=== PATIENT | female | born 1930 | race African-American/Black ===

== ENCOUNTER 2016-11-19 20:41 | Inpatient (IN) | payer MEDICARE ==
[2016-11-17 13:39] LABS: ALBUMIN 3.7 G/DL (3.5-5.0); ALKALINE PHOSPHATASE 116 U/L (45-117); CHOL/HDL RATIO(NOT ORDER) 3.4 (0-5); CHOLESTEROL 175 MG/DL (< 200); HDL CHOLESTEROL 51 MG/DL (> 49); LDL CHOLESTEROL 93 MG/DL (< 130); NON-HDL CHOLESTEROL 124 MG/DL (< 160); SGOT(AST) 17 U/L (5-40); SGPT(ALT) 16 U/L (5-65); TOTAL BILIRUBIN 0.3 MG/DL (0-1.2); TOTAL PROTEIN 7.2 G/DL (6.0-8.5); TRIGLYCERIDE 159 MG/DL (< 150)
[2016-11-17 13:56] LABS: DIRECT BILIRUBIN < 0.1 MG/DL (0.0-0.4); INDIRECT BILIRUBIN(NOT ORDER) 0.2 MG/DL (0.1-0.9)
--- NOTE | ~2016-11-19 | CN ---
Consultation Report [facility] [address] [place]. [address] NAME: JM SULTANA : 28 STATUS : ADM IN [facility]#: [id number] AGE: 85 ADM/REG DATE : 11/19/16 MR#: [id number] REPORT SERV DATE: 11/20/16 DICTATED BY: DELLA ARREDONDO DATE: 11/20/16 REPORT STATUS : Draft TRANSCRIBED BY: INEZ DATE: 11/20/16 GI CONSULTATION DATE OF CONSULTATION: 11/20/2016 REASON FOR CONSULTATION: Evaluation and management of acute lower GI bleeding. HISTORY OF PRESENT ILLNESS: Ms. Jm Sultana is a very pleasant 85-year-old female patient, who was admitted to [facility] on 11/19/2016 for a chief complaint of lower GI bleeding. Ms. Sultana gives a history of symptom onset yesterday at 7 p.m. She states that she felt like she had to use the restroom in terms of having diarrhea. She went to the bathroom. She states that she had a lot of what she felt like was loose stool; however, after observing her output, she noticed that everything was bright red as well as some intermixed scant loose stool. This happened multiple times. She called EMS, who brought her in. She continued to have multiple bloody bowel movements in the emergency room, as well as suffering a syncopal episode during a bowel movement. Her hemoglobin on admission was 12.4, it did drop to 8.4, she is status post one unit of packed red blood cells with improvement to 11.1. She was started on GoLYTELY this morning around 6 a.m., she has only drunk roughly one-fourth of it, it is now 10:25. I have discussed with the patient. She is experiencing some nausea and difficulty getting the bowel prep down. She has passed some more blood with a little bit of dark output per the nurse. Her hemoglobin is stable. Her vital signs are stable. I have discussed with the patient and the family we will hold the bowel prep at present, place her on a clear liquid diet, resume bowel prep this afternoon around 1600 hours. If she continues to have large volume bleeding with decreased hemoglobin and symptomatic changes, we will send her for a tagged red blood cell scan with therapy with interventional Radiology if she has a positive scan. If not, we will proceed with colonoscopy on 11/21/2016. I did discuss with the patient and two family members present at the bedside risks, benefits, alternatives, and complications of colonoscopy to include, but not limited to risk of bleeding, perforation, infection, reaction to medication as well as cardiac and pulmonary side effects. She is agreeable to proceed. PAST MEDICAL HISTORY: Positive for hypertension, hyperlipidemia, type 2 diabetes, osteoarthritis. PAST SURGICAL HISTORY: Hysterectomy, cholecystectomy, left eye surgery. FAMILY HISTORY: Noncontributory. SOCIAL HISTORY: She lives with family. Denies alcohol, tobacco, or illicits. PROCEDURES: She denies ever having EGD or colonoscopy. ALLERGIES: IV DYE, SULFA, IODINE, CODEINE, PROPYLTHIOURACIL. Consultation Report [address] [place]. [address] NAME: JM SULTANA : 29 STATUS : ADM IN [facility]#: [id number] AGE: 85 ADM/REG DATE : 11/19/16 MR#: [id number] REPORT SERV DATE: 11/20/16 DICTATED BY: DELLA ARREDONDO DATE: 11/20/16 REPORT STATUS : Draft TRANSCRIBED BY: INEZ DATE: 11/20/16 HOME MEDICATIONS: Consist of Tylenol, Lantus, Adalat, Pravachol, and Altace. REVIEW OF SYSTEMS: A 10-point review of systems obtained with pertinent positives addressed in the history of present illness. PERTINENT LABORATORY DATA: Sodium is 145, potassium is 4.6, BUN is 15, creatinine is 1.03. White count 12.8, hemoglobin 11.1, hematocrit 33.5, platelet count of 200. INR 1.1. No abdominal imaging has been ordered. PHYSICAL EXAMINATION: VITAL SIGNS: Temperature 98.1, pulse 98, respirations 22, blood pressure is 150/70. NEURO: Reveals an alert, pleasant 85-year-old female patient, resting in the bed with no obvious focal deficits. GENERAL: Cooperative, in no apparent distress. Awake, alert, and oriented x3. HEAD, EARS, EYES, NOSE, AND THROAT: Anicteric. Pupils are equal, round, reactive to light and accommodation. Normocephalic and atraumatic. NECK: No JVD. No palpable nodes. LUNGS: Clear anteriorly with normal respiratory effort exhibited. Equal expansion. CARDIOVASCULAR SYSTEM: Regular rate and rhythm. ABDOMEN: Soft, hyperactive, nontender, mildly distended. No organomegaly, rebound, or guarding elicited on exam. EXTREMITIES: No edema. Normal distal pulses. SKIN: Warm, dry, and intact. ASSESSMENT: 1. Acute lower GI bleed, painless in nature. Differential diagnosis includes:. a. Diverticular, which is favored. b. Internal hemorrhoids. c. AVM. d. Colitis versus a brisk upper GI bleed. 2. Acute blood loss anemia, status post one unit of packed red blood cells. 3. Status post syncopal episode. 4. History of diabetes type 2. 5. History of hypertension. PLAN: 1. Bowel prep to finish this afternoon, colonoscopy planned for 11/21/2016. 2. Monitor H and H, transfuse if needed. 3. If large volume GI bleeding occurs, she becomes symptomatic or decreased hemoglobin, we will send for a stat tagged red blood cell scan with treatment in IR if active bleeding is found. Otherwise, proceed with colonoscopy on 11/21. Other recommendations to follow endoscopy. Consultation Report [facility] [id number] [place]. [address] NAME: JM SULTANA : 29 STATUS : ADM IN PAT#: [id number] AGE: 85 ADM/REG DATE : 11/19/16 MR#: [id number] REPORT SERV DATE: 11/20/16 DICTATED BY: DELLA ARREDONDO DATE: 11/20/16 REPORT STATUS : Draft TRANSCRIBED BY: INEZ DATE: 11/20/16 KEITH/INEZ SOTO Cueva / [id number] CC: MD Eric Fairbanks M.D.
--- NOTE | ~2016-11-19 | HP ---
History And Physical [facility] [id number] [facility] [place]. [address] NAME: DESIRE SULTANA : 29 STATUS : ADM IN [facility]#: [id number] AGE: 85 ADM/REG DATE : 11/19/16 MR#: [id number] REPORT SERV DATE: 11/20/16 DICTATED BY: CANDIE AVINA DATE: 11/20/16 REPORT STATUS : Draft TRANSCRIBED BY: INEZ DATE: 11/20/16 DATE OF ADMISSION: 11/19/2016 CHIEF COMPLAINT: Bleeding. HISTORY OF PRESENT ILLNESS: The patient is an 85-year-old pleasant female with a past medical history of type 2 diabetes, hypertension, and hyperlipidemia, who presents to the emergency room tonight with rectal bleeding. The patient states she was in her usual state of health until approximately 7 p.m. on the night before the hospital admission. She says at that time she went to have, what she thought was, a bowel movement and when she looked in the toilet saw that it was filled with bright red blood and very scant loose stools. She then proceeded to call EMS who brought her here to the emergency room. Here in the emergency room, she has had multiple bloody bowel movements that have filled up pads and basins in the emergency room. She had a syncopal episode during one of these bowel movements and her hemoglobin has gone from 12 down to 8 in the emergency room. Her last bloody bowel movement was at approximately 11 p.m. last night in the ER. The patient says that prior to these bleeding episodes she has been feeling fine in the last few days. No weakness. No chest pain. No shortness of breath. No fevers. No abdominal pain. She denies any history of bleeding and denies taking any blood thinners. She has not been routinely taking any NSAIDs or other pain medications. Given the patient's syncopal episode and her multiple bright red blood per rectum bowel movements, the patient is being admitted to the ICU for further management. PAST MEDICAL HISTORY: 1. Hypertension. 2. Type 2 diabetes. 3. Hyperlipidemia. 4. Osteoarthritis. 5. History of hysterectomy. 6. History of cholecystectomy. 7. History of left eye cataract. HOME MEDICATIONS: 1. Lantus 30 units subcu every morning. 2. Lantus 10 units subcu every evening. 3. Nifedipine extended release 30 mg p.o. twice daily. 4. Pravastatin 20 mg p.o. once daily. 5. Ramipril 10 mg p.o. twice daily. 6. Acetaminophen 500 mg p.o. daily as needed. ALLERGIES: INCLUDE SULFA, IODINE, CODEINE, AND PROPYLTHIOURACIL. SOCIAL HISTORY: No tobacco, alcohol, or IV drug abuse. FAMILY HISTORY: No history of colon cancer or GI bleeding. History And Physical [address] [address] NAME: DESIRE SULTANA : 29 STATUS : ADM IN PAT#: [id number] AGE: 85 ADM/REG DATE : 11/19/16 MR#: [id number] REPORT SERV DATE: 11/20/16 DICTATED BY: CANDIE AVINA DATE: 11/20/16 REPORT STATUS : Draft TRANSCRIBED BY: INEZ DATE: 11/20/16 REVIEW OF SYSTEMS: 10-point review of systems negative except as mentioned in the HPI. PHYSICAL EXAMINATION: VITAL SIGNS: Temperature 98.2, heart rate 64, respiratory rate 17, and blood pressure 154/69. GENERAL: No acute distress. HEENT: Pupils equal, round, and reactive to light. Extraocular eye movements intact. Oropharynx clear. Moist mucous membranes. NECK: Supple. Nontender. No lymphadenopathy. No thyromegaly. No jugular venous distention. LUNGS: Clear to auscultation bilaterally. CARDIOVASCULAR: Regular rate and rhythm. No murmurs, rubs, or gallops. ABDOMEN: Soft mildly tender to palpation. Positive bowel sounds. No rebound or guarding. EXTREMITIES: No cyanosis, clubbing, or edema. NEURO: Alert and oriented x3. Cranial nerves intact. PSYCH: Mood appropriate. LABORATORIES AND IMAGING: Metabolic profile remarkable for a creatinine of 1.1, glucose of 243. CBC with a hemoglobin of 8.4, initial hemoglobin in the emergency room was 12.4. ASSESSMENT AND PLAN: The patient is an 85-year-old female with past medical history of diabetes, hypertension, hyperlipidemia, who presents with acute likely lower GI bleeding. 1. Acute GI bleed, most likely lower in etiology and probably a diverticular bleed. No history of diverticulosis as far as we are aware. The patient's hemoglobin has dropped significantly from 12 down to 8 over the course of two hours in the emergency department. We are giving one unit of packed red blood cells now and have four units on standby. For now, the patient is hemodynamically stable. We will hold her antihypertensive medications in the chance that her blood pressure does drop. We are starting her on a Protonix drip and giving IV fluid resuscitation as well. We will monitor her CBCs q.6 hours. GI has already been consulted and will see her first thing in the morning. If she continues to have significant bleeding tonight, we will send her to Radiology to see if there is something they could embolize. The patient will be kept n.p.o. for now for a colonoscopy tomorrow. 2. Type 2 diabetes. We will hold patient's home Lantus. We will place on sliding scale insulin level 2. We will place on a diabetic diet when we are allowing her to eat. 3. Hypertension. For now, we will hold patient's home antihypertensive medications given the possibility that her blood pressure could decrease with hypovolemic shock. 4. The patient will be on SCDs for DVT prophylaxis. She will be on a Protonix drip for gastrointestinal prophylaxis. 5. The patient has high probability of sudden clinically significant or imminent life- threatening deterioration. Total critical care time spent on this patient was 40 minutes. History And Physical [address] [address] NAME: DESIRE SULTANA : 29 STATUS : ADM IN [facility]#: [id number] AGE: 85 ADM/REG DATE : 11/19/16 MR#: [id number] REPORT SERV DATE: 11/20/16 DICTATED BY: CANDIE AVINA DATE: 11/20/16 REPORT STATUS : Draft TRANSCRIBED BY: INEZ DATE: 11/20/16 CHANDLER/INEZ Candie Avina MD / [id number] CC: MD Eric Fairbanks M.D.
--- NOTE | ~2016-11-19 | DS ---
Discharge Summary [facility] [id number] [place]. [address] NAME: DESIRE SULTANA : 29 STATUS : DIS IN PAT#: [id number] AGE: 85 ADM/REG DATE : 11/19/16 MR#: [id number] REPORT SERV DATE: 11/23/16 DICTATED BY: ANGELO MARTIN DATE: 11/23/16 REPORT STATUS : Draft TRANSCRIBED BY: INEZ DATE: 11/23/16 ADMISSION DATE: 11/19/2016 DISCHARGE DATE: 11/23/2016 This patient was initially admitted to critical care and she was seen by Critical Care Service, Dr. Fernando until today on 11/23/2016, when the patient was transferred to the regular floor and I saw this patient only on the day of discharge. DIAGNOSES ON ADMISSION: 1. Acute lower gastrointestinal bleed likely diverticular bleed. 2. Type 2 diabetes. 3. Hypertension. 4. Advanced age. DIAGNOSES ON DISCHARGE: 1. Acute gastrointestinal bleeding, present on admission, resolved, etiology likely diverticulosis, status post colonoscopy done by Dr. Tatum on 11/21/2016, diverticulosis of the sigmoid colon likely the source of prior bleeding, one 12 mm polyp in the cecum, resected and retrieved. 2. Hypertension, controlled. 3. Diabetes, controlled. 4. Mild asymptomatic UTI found today, treated with intravenous Rocephin and Ceftin given for four more days outpatient. 5. Anemia of acute blood loss, stable hemoglobin and hematocrit. HISTORY OF PRESENT ILLNESS: Per dictation of Dr. Fernando: The patient was admitted to the ICU because of the rectal bleeding. HOSPITAL COURSE: Briefly, per ICU notes, the patient had a colonoscopy done by Dr. Tatum of [facility] and she was seen by [facility] Dr. Tatum and [facility], Dr. Briceño who saw the patient today and recommended the patient to be discharged today. The patient was doing well. Her blood pressure was stable. She did not have any evidence of hypotension. Actually, blood pressure was on the higher side, but after she was given her medications, it has improved. It was 135/62, 120/60, and heart rate was 88. She was doing well and I check her urinalysis, which showed positive leukocyte esterase. I gave her one dose of Rocephin. Since she had mild leukocytosis, I give her one dose of Rocephin IV and also Ceftin 500 mg p.o. b.i.d. for four more days. She needs to follow up with Dr. Carrero next week. Her hemoglobin stayed stable. It was 9.7 yesterday, 9.4 today. She was doing very well and blood sugar as well was controlled, but we recommended to decrease her Lantus to 10 units twice a day until she will start to eat her normal diet then she can go back to her home Lantus regimen. I also discussed with the patient's daughter, the patient's medical problems. The patient was discharged in stable. DISCHARGE MEDICATIONS: 1. Lantus decreased to 10 units twice a day. 2. Nifedipine 30 mg twice a day. Discharge Summary [address] [address] NAME: DESIRE SULTANA : 29 STATUS : DIS IN PAT#: [id number] AGE: 85 ADM/REG DATE : 11/19/16 MR#: [id number] REPORT SERV DATE: 11/23/16 DICTATED BY: ANGELO MARTIN DATE: 11/23/16 REPORT STATUS : Draft TRANSCRIBED BY: INEZ DATE: 11/23/16 3. Pravastatin 20 mg daily. 4. Altace 10 mg b.i.d. 5. The patient was started on clonidine 0.1 mg patch every 7 days which probably could be discontinued once she sees Dr. Carrero. 6. Ceftin 500 mg p.o. b.i.d. for four more days. 7. Tylenol 500 mg p.o. p.r.n. for pain. I spent 45 minutes on discharge. /MODL Angelo Martin M.D. / [id number] CC: MD Eric Fairbanks M.D. James Scott Manton, M.D.
--- NOTE | ~2016-11-19 | EGD ---
EGD REPORT [facility] [address] [place] [address] NAME: JM SULTANA : 29 STATUS : ADM IN PAT#: [id number] AGE: 85 ADM/REG DATE : 11/19/16 MR#: [id number] REPORT SERV DATE: 11/21/16 DICTATED BY: BANDAR CHAVEZ DATE: 11/21/16 REPORT STATUS : Draft [facility]ANS[facility]: [facility] DATE: 11/21/16 Endoscopy Center Patient Name: Jm Sultana Date of : 1930 Attending MD: BANDAR CHAVEZ MD Procedure Date No Time: 11/21/2016 Procedure: Colonoscopy Indications: Hematochezia Medicines: Monitored Anesthesia Care Complications: No immediate complications. Estimated blood loss: Minimal. Procedure: Pre-Anesthesia Assessment: - ASA Grade Assessment: III - A patient with severe systemic disease. After I obtained informed consent, the scope was passed under direct vision. Throughout the procedure, the patient's blood pressure, pulse, and oxygen saturations were monitored continuously. The CF [id number] was introduced through the anus and advanced to the cecum, identified by appendiceal orifice and ileocecal valve. The colonoscopy was performed without difficulty. The patient tolerated the procedure well. The quality of the bowel preparation was good. Findings: The perianal and digital rectal examinations were normal. Pertinent negatives include normal sphincter tone and no palpable rectal lesions. A flat polyp was found in the cecum. The polyp was 12 mm in size. The polyp was removed with a saline injection-lift technique using a cold snare. Resection and retrieval were complete. Estimated blood loss was minimal. Multiple small-mouthed diverticula were found in the sigmoid colon. The exam was otherwise without abnormality on direct and retroflexion views. Impression: - One 12 mm polyp in the cecum. Resected and retrieved. - Diverticulosis in the sigmoid colon - Likely the source of prior bleeding. - The examination was otherwise normal on direct and retroflexion views with no suggestion of persistent bleeding. Recommendation: - Await pathology results. - Check hemoglobin q 12 hours until stable. EGD REPORT [address] [address] NAME: JM SULTANA : 29 STATUS : ADM IN [facility]#: [id number] AGE: 85 ADM/REG DATE : 11/19/16 MR#: [id number] REPORT SERV DATE: 11/21/16 DICTATED BY: BANDAR CHAVEZ DATE: 11/21/16 REPORT STATUS : Draft TRANSCRIBED BY: [employer] DATE: 11/21/16 Procedure Code(s): --- Professional --- 88738, Colonoscopy, flexible, proximal to splenic flexure; with removal of tumor(s), polyp(s), or other lesion(s) by snare technique 49745, Colonoscopy, flexible, proximal to splenic flexure; with directed submucosal injection(s), any substance Diagnosis Code(s): --- Professional --- D12.0, Benign neoplasm of cecum K57.30, Diverticulosis of large intestine without perforation or abscess without bleeding K92.1, Melena CPT copyright 2013 [employer]. All rights reserved. The codes documented in this report are preliminary and upon county nurse review may be revised to meet current compliance requirements. Bandar Chavez MD BANDAR CHAVEZ MD 11/21/2016 2:59 PM This report has been signed electronically. Number of Addenda: 0 Note Initiated On: 11/21/2016 9:21 AM Scope Withdrawal Time 0 hours 22 minutes 44 seconds [address] [place] [id number]
[~2016-11-19 20:41] MED LIST: ALTACE10 MG PO; LANTUS SC; [UNRECOGNIZED DRUG - OTHER] PO
[2016-11-19] MEDS ORDERED: LANTUSCART SC ×2 (22:18→22:19)
[2016-11-19 22:19] LABS: BASOPHILS 0.3 %; BASOPHILS ABSOLUTE 0.04 10/3/uL (0.0-0.16); EOSINOPHILS 1.3 %; EOSINOPHILS ABSOLUTE 0.16 10/3/uL (0.0-0.53); ER CBC TAT 0 Hrs 11 Mins; HEMATOCRIT 37.4 % (36.0-48.0); HEMOGLOBIN 12.4 g/dL (12.0-16.0); IMMATURE GRANULOCYTES 0.3 %; IMMATURE GRANULOCYTES ABSOLUTE 0.04 10/3/uL (0.0-0.11); LYMPHOCYTES 19.3 %; LYMPHOCYTES ABSOLUTE 2.39 10/3/uL (0.67-4.30); MEAN CORPUS HGB CONC 33.2 g/dL (32.0-36.0); MEAN CORPUSCULAR HEMOGLOB 26.5 pg (26.0-34.0); MEAN CORPUSCULAR VOLUME 79.9 fL (80-100); MEAN PLATELET VOLUME 11.7 fL (9.2-13.0); MONOCYTES 5.5 %; MONOCYTES ABSOLUTE 0.68 10/3/uL (0.21-1.20); NEUTROPHILS 73.3 %; NEUTROPHILS ABSOLUTE 9.07 10/3/uL (2.02-8.40); RBC DISTRIBUTION WIDTH 13.7 % (12.0-16.0); RED CELL COUNT 4.68 10/6/uL (4.0-5.6); WHITE BLOOD CELLS 12.4 10/3/uL (4.5-10.5)
[2016-11-19 22:20] LABS: MANUAL DIFF NO %; PLATELET COUNT 178 10/3/uL (150-400)
[2016-11-19] MEDS ORDERED: PRAVAC PO (22:20)
[2016-11-19] MEDS ORDERED: ADALAT CC30 MG PO (22:20)
[2016-11-19] MEDS ORDERED: ALTACE10 MG PO (22:20)
[2016-11-19] MEDS ORDERED: ACET500CAP PO (22:21)
[2016-11-19 22:29] LABS: INTERNATIONAL NORMAL RATI 1.1 UNITS (-); PROTIME (NOT ORD) 13.7 SEC (12.0-14.5)
[2016-11-19 22:37] LABS: A/G RATIO 0.9 (0.7-1.9); ALBUMIN 3.3 G/DL (3.5-5.0); CALCIUM, SERUM 8.8 MG/DL (8.5-10.4); CHLORIDE, SERUM 105 MMOL/L (96-112); CO2 (CARBON DIOXIDE) 26 MMOL/L (24-34); CREATININE 1.14 MG/DL (0.55-1.02); GFR AFRICAN AMERICAN 50 ML/MIN (>=60); GFR NON AFRICAN AMERICAN 44 ML/MIN (>=60); GLOBULIN 3.8 G/DL (2.5-4.1); GLUCOSE, SERUM 243 MG/DL (60-99); POTASSIUM, SERUM 4.6 MMOL/L (3.5-5.3); SGPT(ALT) 14 U/L (5-65); SODIUM, SERUM 141 MMOL/L (135-148); TOTAL BILIRUBIN 0.4 MG/DL (0-1.2); TOTAL PROTEIN 7.1 G/DL (6.0-8.5)
[2016-11-19 22:38] LABS: ALKALINE PHOSPHATASE 101 U/L (45-117); BUN (BLOOD UREA NITROGEN) 20 MG/DL (6-23)
[2016-11-19 22:39] LABS: SGOT(AST) 14 U/L (5-40)
[2016-11-19 23:43] LABS: BASOPHILS 0.2 %; BASOPHILS ABSOLUTE 0.02 10/3/uL (0.0-0.16); EOSINOPHILS 0.4 %; EOSINOPHILS ABSOLUTE 0.04 10/3/uL (0.0-0.53); ER CBC TAT 0 Hrs 05 Mins; HEMATOCRIT 24.9 % (36.0-48.0); HEMOGLOBIN 8.4 g/dL (12.0-16.0); IMMATURE GRANULOCYTES 0.4 %; IMMATURE GRANULOCYTES ABSOLUTE 0.04 10/3/uL (0.0-0.11); LYMPHOCYTES 14.6 %; LYMPHOCYTES ABSOLUTE 1.55 10/3/uL (0.67-4.30); MANUAL DIFF NO %; MEAN CORPUS HGB CONC 33.7 g/dL (32.0-36.0); MEAN CORPUSCULAR VOLUME 80.1 fL (80-100); MONOCYTES 4.4 %; MONOCYTES ABSOLUTE 0.47 10/3/uL (0.21-1.20); NEUTROPHILS ABSOLUTE 8.49 10/3/uL (2.02-8.40); PLATELET COUNT 177 10/3/uL (150-400); RBC DISTRIBUTION WIDTH 13.5 % (12.0-16.0); RED CELL COUNT 3.11 10/6/uL (4.0-5.6); WHITE BLOOD CELLS 10.6 10/3/uL (4.5-10.5)
[2016-11-20 04:25] LABS: BASOPHILS 0.3 %; BASOPHILS ABSOLUTE 0.04 10/3/uL (0.0-0.16); EOSINOPHILS 0.2 %; EOSINOPHILS ABSOLUTE 0.03 10/3/uL (0.0-0.53); IMMATURE GRANULOCYTES 0.3 %; IMMATURE GRANULOCYTES ABSOLUTE 0.04 10/3/uL (0.0-0.11); LYMPHOCYTES 20.7 %; LYMPHOCYTES ABSOLUTE 2.65 10/3/uL (0.67-4.30); MEAN CORPUS HGB CONC 33.1 g/dL (32.0-36.0); MEAN CORPUSCULAR HEMOGLOB 26.8 pg (26.0-34.0); MEAN CORPUSCULAR VOLUME 80.9 fL (80-100); MEAN PLATELET VOLUME 10.4 fL (9.2-13.0); MONOCYTES 3.8 %; MONOCYTES ABSOLUTE 0.48 10/3/uL (0.21-1.20); NEUTROPHILS 74.7 %; NEUTROPHILS ABSOLUTE 9.55 10/3/uL (2.02-8.40); PLATELET COUNT 200 10/3/uL (150-400); RBC DISTRIBUTION WIDTH 13.6 % (12.0-16.0); WHITE BLOOD CELLS 12.8 10/3/uL (4.5-10.5)
[2016-11-20 04:32] LABS: HEMATOCRIT 33.5 % (36.0-48.0); HEMOGLOBIN 11.1 g/dL (12.0-16.0); MANUAL DIFF NO %; RED CELL COUNT 4.14 10/6/uL (4.0-5.6)
[2016-11-20 04:38] LABS: CALCIUM, SERUM 7.9 MG/DL (8.5-10.4); CHLORIDE, SERUM 113 MMOL/L (96-112); CO2 (CARBON DIOXIDE) 27 MMOL/L (24-34); CREATININE 1.03 MG/DL (0.55-1.02); GFR AFRICAN AMERICAN 57 ML/MIN (>=60); GFR NON AFRICAN AMERICAN 49 ML/MIN (>=60); GLUCOSE, SERUM 197 MG/DL (60-99); POTASSIUM, SERUM 4.6 MMOL/L (3.5-5.3); SODIUM, SERUM 145 MMOL/L (135-148)
[2016-11-20 04:40] LABS: BUN (BLOOD UREA NITROGEN) 15 MG/DL (6-23); PHOSPHORUS, SERUM 2.4 MG/DL (2.5-4.5)
[2016-11-20 10:57] LABS: BASOPHILS 0.2 %; BASOPHILS ABSOLUTE 0.03 10/3/uL (0.0-0.16); EOSINOPHILS 0.2 %; EOSINOPHILS ABSOLUTE 0.03 10/3/uL (0.0-0.53); HEMATOCRIT 35.2 % (36.0-48.0); HEMOGLOBIN 11.8 g/dL (12.0-16.0); IMMATURE GRANULOCYTES 0.3 %; IMMATURE GRANULOCYTES ABSOLUTE 0.04 10/3/uL (0.0-0.11); LYMPHOCYTES 17.9 %; LYMPHOCYTES ABSOLUTE 2.49 10/3/uL (0.67-4.30); MEAN CORPUS HGB CONC 33.5 g/dL (32.0-36.0); MEAN CORPUSCULAR HEMOGLOB 27.1 pg (26.0-34.0); MEAN CORPUSCULAR VOLUME 80.7 fL (80-100); MEAN PLATELET VOLUME 10.4 fL (9.2-13.0); MONOCYTES 3.7 %; MONOCYTES ABSOLUTE 0.51 10/3/uL (0.21-1.20); NEUTROPHILS 77.7 %; PLATELET COUNT 216 10/3/uL (150-400); RBC DISTRIBUTION WIDTH 13.6 % (12.0-16.0); RED CELL COUNT 4.36 10/6/uL (4.0-5.6); WHITE BLOOD CELLS 13.9 10/3/uL (4.5-10.5)
[2016-11-20 11:01] LABS: MANUAL DIFF NO %
[2016-11-20 17:06] LABS: BASOPHILS 0.4 %; BASOPHILS ABSOLUTE 0.05 10/3/uL (0.0-0.16); EOSINOPHILS 0.6 %; EOSINOPHILS ABSOLUTE 0.08 10/3/uL (0.0-0.53); HEMATOCRIT 35.5 % (36.0-48.0); IMMATURE GRANULOCYTES 0.2 %; IMMATURE GRANULOCYTES ABSOLUTE 0.03 10/3/uL (0.0-0.11); LYMPHOCYTES 23.2 %; LYMPHOCYTES ABSOLUTE 2.87 10/3/uL (0.67-4.30); MANUAL DIFF NO %; MEAN CORPUS HGB CONC 33.8 g/dL (32.0-36.0); MEAN CORPUSCULAR HEMOGLOB 26.8 pg (26.0-34.0); MEAN CORPUSCULAR VOLUME 79.4 fL (80-100); MEAN PLATELET VOLUME 11.1 fL (9.2-13.0); MONOCYTES 6.1 %; MONOCYTES ABSOLUTE 0.75 10/3/uL (0.21-1.20); NEUTROPHILS 69.5 %; NEUTROPHILS ABSOLUTE 8.58 10/3/uL (2.02-8.40); PLATELET COUNT 236 10/3/uL (150-400); RBC DISTRIBUTION WIDTH 13.6 % (12.0-16.0); RED CELL COUNT 4.47 10/6/uL (4.0-5.6); WHITE BLOOD CELLS 12.4 10/3/uL (4.5-10.5)
[2016-11-20 21:49] LABS: BASOPHILS 0.4 %; BASOPHILS ABSOLUTE 0.05 10/3/uL (0.0-0.16); EOSINOPHILS 0.9 %; EOSINOPHILS ABSOLUTE 0.11 10/3/uL (0.0-0.53); HEMOGLOBIN 11.8 g/dL (12.0-16.0); IMMATURE GRANULOCYTES 0.3 %; IMMATURE GRANULOCYTES ABSOLUTE 0.04 10/3/uL (0.0-0.11); LYMPHOCYTES 28.4 %; LYMPHOCYTES ABSOLUTE 3.62 10/3/uL (0.67-4.30); MEAN CORPUS HGB CONC 32.8 g/dL (32.0-36.0); MEAN CORPUSCULAR HEMOGLOB 26.9 pg (26.0-34.0); MEAN PLATELET VOLUME 10.6 fL (9.2-13.0); MONOCYTES 4.3 %; MONOCYTES ABSOLUTE 0.55 10/3/uL (0.21-1.20); NEUTROPHILS 65.7 %; NEUTROPHILS ABSOLUTE 8.38 10/3/uL (2.02-8.40); PLATELET COUNT 210 10/3/uL (150-400); RBC DISTRIBUTION WIDTH 13.8 % (12.0-16.0); RED CELL COUNT 4.38 10/6/uL (4.0-5.6); WHITE BLOOD CELLS 12.8 10/3/uL (4.5-10.5)
[2016-11-20 21:50] LABS: MANUAL DIFF NO %; MEAN CORPUSCULAR VOLUME 82.2 fL (80-100)
[2016-11-21 04:12] LABS: CALCIUM, SERUM 8.2 MG/DL (8.5-10.4); CHLORIDE, SERUM 112 MMOL/L (96-112); CO2 (CARBON DIOXIDE) 24 MMOL/L (24-34); CREATININE 0.95 MG/DL (0.55-1.02); GFR AFRICAN AMERICAN 63 ML/MIN (>=60); GFR NON AFRICAN AMERICAN 54 ML/MIN (>=60); SODIUM, SERUM 147 MMOL/L (135-148)
[2016-11-21 04:13] LABS: BASOPHILS 0.2 %; BASOPHILS ABSOLUTE 0.02 10/3/uL (0.0-0.16); BUN (BLOOD UREA NITROGEN) 9 MG/DL (6-23); EOSINOPHILS 0.3 %; EOSINOPHILS ABSOLUTE 0.04 10/3/uL (0.0-0.53); GLUCOSE, SERUM 149 MG/DL (60-99); HEMATOCRIT 32.4 % (36.0-48.0); HEMOGLOBIN 10.8 g/dL (12.0-16.0); IMMATURE GRANULOCYTES 0.3 %; IMMATURE GRANULOCYTES ABSOLUTE 0.03 10/3/uL (0.0-0.11); LYMPHOCYTES 22.4 %; LYMPHOCYTES ABSOLUTE 2.64 10/3/uL (0.67-4.30); MEAN CORPUS HGB CONC 33.3 g/dL (32.0-36.0); MEAN CORPUSCULAR HEMOGLOB 27.2 pg (26.0-34.0); MEAN CORPUSCULAR VOLUME 81.6 fL (80-100); MEAN PLATELET VOLUME 10.6 fL (9.2-13.0); MONOCYTES 3.3 %; MONOCYTES ABSOLUTE 0.39 10/3/uL (0.21-1.20); NEUTROPHILS 73.5 %; NEUTROPHILS ABSOLUTE 8.68 10/3/uL (2.02-8.40); PLATELET COUNT 221 10/3/uL (150-400); POTASSIUM, SERUM 3.9 MMOL/L (3.5-5.3); RBC DISTRIBUTION WIDTH 13.7 % (12.0-16.0); RED CELL COUNT 3.97 10/6/uL (4.0-5.6); WHITE BLOOD CELLS 11.8 10/3/uL (4.5-10.5)
[2016-11-21 04:14] LABS: MANUAL DIFF NO %
[2016-11-21 04:16] LABS: INTERNATIONAL NORMAL RATI 1.2 UNITS (-); PROTIME (NOT ORD) 14.7 SEC (12.0-14.5)
[2016-11-21 16:08] LABS: HEMATOCRIT 30.7 % (36.0-48.0); HEMOGLOBIN 10.2 g/dL (12.0-16.0)
[2016-11-22 04:24] LABS: BASOPHILS 0.1 %; BASOPHILS ABSOLUTE 0.02 10/3/uL (0.0-0.16); EOSINOPHILS 1.2 %; EOSINOPHILS ABSOLUTE 0.16 10/3/uL (0.0-0.53); HEMATOCRIT 28.9 % (36.0-48.0); HEMOGLOBIN 9.7 g/dL (12.0-16.0); IMMATURE GRANULOCYTES 0.4 %; IMMATURE GRANULOCYTES ABSOLUTE 0.05 10/3/uL (0.0-0.11); LYMPHOCYTES 18.5 %; LYMPHOCYTES ABSOLUTE 2.57 10/3/uL (0.67-4.30); MEAN CORPUS HGB CONC 33.6 g/dL (32.0-36.0); MEAN CORPUSCULAR HEMOGLOB 27.6 pg (26.0-34.0); MEAN CORPUSCULAR VOLUME 82.1 fL (80-100); MEAN PLATELET VOLUME 10.6 fL (9.2-13.0); MONOCYTES 5.4 %; MONOCYTES ABSOLUTE 0.75 10/3/uL (0.21-1.20); NEUTROPHILS 74.4 %; NEUTROPHILS ABSOLUTE 10.31 10/3/uL (2.02-8.40); PLATELET COUNT 217 10/3/uL (150-400); RBC DISTRIBUTION WIDTH 13.8 % (12.0-16.0); RED CELL COUNT 3.52 10/6/uL (4.0-5.6); WHITE BLOOD CELLS 13.9 10/3/uL (4.5-10.5)
[2016-11-22 04:26] LABS: MANUAL DIFF NO %
[2016-11-22 04:39] LABS: BUN (BLOOD UREA NITROGEN) 10 MG/DL (6-23); CHLORIDE, SERUM 110 MMOL/L (96-112); CO2 (CARBON DIOXIDE) 26 MMOL/L (24-34); CREATININE 1.12 MG/DL (0.55-1.02); GFR AFRICAN AMERICAN 52 ML/MIN (>=60); GFR NON AFRICAN AMERICAN 44 ML/MIN (>=60); GLUCOSE, SERUM 145 MG/DL (60-99); POTASSIUM, SERUM 3.6 MMOL/L (3.5-5.3); SODIUM, SERUM 144 MMOL/L (135-148)
[2016-11-23 04:37] LABS: HEMATOCRIT 27.9 % (36.0-48.0); HEMOGLOBIN 9.4 g/dL (12.0-16.0)
[2016-11-23 09:50] LABS: ASCORBIC ACID (UR NOT ORDER) NEG (NEG); BILIRUBIN, URINE NEGATIVE (NEG); KETONE, URINE NEGATIVE (NEG); LEUKOCYTE ESTERASE(NOT OR LARGE (NEG); WBC (NOT ORDERED) (RFLEX) 31 (0-5)
[2016-11-23] MEDS ORDERED: CATPATCH1 TOP (14:26)
[2016-11-23] MEDS ORDERED: CEFT5 PO (14:26)
== END 2016-11-23 15:01 | disposition home or self-care (01) | DRG 378 ==
LOC: ER 20:41 → CVICU 23:50 → 5SO 11-22 16:07
PROVIDERS: Emergency Medicine; Hospitalist; Internal Medicine; Internal Medicine Critical Care Medicine; Internal Medicine Gastroenterology; Nurse Practitioner Family
PROC: 30233N1 Transfusion of Nonautologous Red Blood Cells into Peripheral Vein, Percutaneous Approach (ICD-10-PCS; 2016-11-20)
PROC: 0DBH8ZZ Excision of Cecum, Via Natural or Artificial Opening Endoscopic (ICD-10-PCS; principal; 2016-11-21 08:30)
DX: K57.31 Diverticulosis of large intestine without perforation or abscess with bleeding (principal); N39.0 Urinary tract infection, site not specified; D62 Acute posthemorrhagic anemia; E11.9 Type 2 diabetes mellitus without complications; D12.0 Benign neoplasm of cecum; I10 Essential (primary) hypertension; M19.90 Unspecified osteoarthritis, unspecified site; Z90.710 Acquired absence of both cervix and uterus; Z90.49 Acquired absence of other specified parts of digestive tract; Z98.890 Other specified postprocedural states; Z79.4 Long term (current) use of insulin; Z79.899 Other long term (current) drug therapy; Z88.2 Allergy status to sulfonamides; Z88.5 Allergy status to narcotic agent; Z88.8 Allergy status to other drugs, medicaments and biological substances
CPT/HCPCS: 36415; 36430; 71010; 80048; 80053; 80061; 80076; 81001; 82962; 83036; 83735; 84100; 85014; 85018; 85025; 85610; 86850; 86900; 86901; 86920; 87086; 87641; 88305; 99285; A9270-GY; C9113; J0360; P9016